=== PATIENT | female | born 1960 | race Caucasian/White ===

== ENCOUNTER 2020-08-31 11:30 | Outpatient (REF) | payer BC, SELFPAY ==
--- NOTE | 2020-08-31 08:30 | PAPFT_PTH ---
PATIENT: Karol Coker LOC: [facility]#:[id number] AGE/SX: 60/F ROOM: RE08/31/[address]: Greg Newton : 1960 BED: DIS: 08/31/2020 SPEC #: [id number] RECD: 08/31/20 12:59 STATUS: BRII REQ #: [id number] MARC: 08/31/20 08:[address]: Greg Newton DEPT: [facility] Cytology RECD BY: Sameera Moncada Tissues: 1 - CX/ENDOCX FOR PAP SMEARS Procedures: PAP THIN PREP/[facility] Screening HPV DNA PROBE Comments: [id number]
[2020-08-31 13:47] LABS: Anion Gap 6.8 mmol/L (3-11); BUN 21 mg/dL (7-18); CO2 28.2 mmol/L (21.0-32.0); CREATININE 0.62 mg/dL (0.55-1.02); Calcium 8.6 mg/dL (8.5-10.1); Calculated LDL 118 mg/dL (<100); Chloride 105 mmol/L (98-107); Cholesterol 210 mg/dL (<200); Glucose 87 mg/dL (74-106); HDL Cholesterol 75 mg/dL (40-60); Potassium 4.1 mmol/L (3.5-5.1); Sodium 140 mmol/L (136-145); Triglyceride 88 mg/dL (<150)
== END 2020-08-31 11:50 ==
LOC: NCHCN 11:30
PROVIDERS: PCP Family Medicine; Visit Provider Family Medicine
DX: Z00.00 Encounter for general adult medical examination without abnormal findings (principal); Z13.220 Encounter for screening for lipoid disorders; Z13.228 Encounter for screening for other metabolic disorders; Z12.4 Encounter for screening for malignant neoplasm of cervix; Z11.51 Encounter for screening for human papillomavirus (HPV)
CPT/HCPCS: 80048; 80061; 88142; 87624

== ENCOUNTER 2022-12-13 11:54 | Outpatient (REF) | payer BC, SELFPAY ==
--- NOTE | 2022-12-13 10:30 | PAPFT_PTH ---
PATIENT: Karol Coker LOC: [facility]#:[id number] AGE/SX: 62/F ROOM: RE12/13/[address]: Raegan Bangura : 1960 BED: DIS: 12/13/2022 SPEC #: [id number] RECD: 12/13/22 17:43 STATUS: BRII REQ #: [id number] MARC: 12/13/22 10:[address]: Raegan Bangura DEPT: [facility] Cytology RECD BY: Sameera Moncada ENTERED: 12/13/22 17:43 SP TYPE: PAPFT OTHR DR: Greg Newton Tissues: 1 - CX/ENDOCX FOR PAP SMEARS Procedures: PAP THIN PREP/[facility] Screening HPV DNA PROBE Comments: [id number]
== END 2022-12-13 11:55 | disposition home or self-care (01) ==
LOC: NCHCN 11:54
PROVIDERS: PCP Family Medicine; Visit Provider Internal Medicine
DX: N89.8 Other specified noninflammatory disorders of vagina (principal); L29.2 Pruritus vulvae; Z12.4 Encounter for screening for malignant neoplasm of cervix; Z11.51 Encounter for screening for human papillomavirus (HPV)
CPT/HCPCS: 88142; 87480; 87510; 87624; 87660

== ENCOUNTER 2023-09-14 10:32 | Outpatient (REF) | payer BC, SELFPAY ==
--- OUTSIDE RECORDS SUMMARY | 2023-09-14 14:24 | XMS_ITS | CCD ---
Author Name Unknown Address [address] [place] [address] [phone] Organization Unknown Address [address] [place] [address] [phone] Care Team Providers Care Accounts Payable Processor Name Role Phone ARTEMIO LANZA Attending Physician [phone] Vital Signs Unknown or Not Available. Allergies Allergy Code Allergy Type Reaction Status No Known Drug Allergies 0 No known drug allergies Active Procedures Unknown or Not Available. History of Immunizations Unknown or Not Available. Problems Unknown or Not Available. Results Unknown or Not Available. Active Medications Unknown or Not Available. Medications Administered During Visit Unknown or Not Available. Encounters Encounter Diagnosis Diagnosis Code Start Date Screening mammography [id number] 09/07/2021 Social History Smoking Status Code Start Date End Date Never smoker [id number] Patient Decision Aids Unknown or Not Available. Discharge Instructions You were admitted to [facility] on 09/07/2021 11:24 with a principal diagnosis of Encounter for screening mammogram for malignant neoplasm of breast You were discharged from [facility] on 09/07/2021 11:24 Should you have any questions prior to discharge, please contact a member of your healthcare team. If you have left the hospital and have any questions, please contact your primary care physician. Chief Complaint and Reason For Visit Chief Complaint Date of Onset SCREENING Function Status Unknown or Not Available. Plan of Care Unknown or Not Available. Referral/Transition of Care Unknown or Not Available.
--- OUTSIDE RECORDS SUMMARY | 2023-09-14 14:24 | XMS_ITS | CCD ---
Author Name Unknown Address [address] [place] [address] [phone] Organization Unknown Address [address] [place] [address] [phone] Care Team Providers Care Compounding Scaler Name Role Phone LYNN HERMOSILLO Attending Physician [phone] LYNN HERMOSILLO Rounding (Secondary) Physic karla [phone] Vital Signs Unknown or Not Available. Allergies [...] Encounters Encounter Diagnosis Diagnosis Code Start Date Cellulitis of right finger [id number] 04/09 Social History Smoking Status Code Start Date End Date Never smoker [id number] Patient Decision Aids Unknown or Not Available. Discharge Instructions You were admitted to [facility] on 04/09/2023 00:00 with a principal diagnosis of Cellulitis of right finger You were discharged from [facility] on 04/09/2023 00:00 Should you have any questions prior to discharge, please contact a member of your healthcare team. If you have left the hospital and have any questions, please contact your primary care physician. Chief Complaint and Reason For Visit Unknown or Not Available. Function Status Unknown or Not Available. Plan of Care Unknown or Not Available. Referral/Transition of Care Unknown or Not Available.
--- OUTSIDE RECORDS SUMMARY | 2023-09-14 14:24 | XMS_ITS | CCD ---
Author Name Unknown Address [address] [place] [address] [phone] Organization Unknown Address [address] [place] [address] [phone] Care Team Providers Care Mink Rancher Name Role Phone ARTEMIO LANZA Attending Physician [phone] Vital Signs Unknown or Not Available. [...] Encounters Encounter Diagnosis Diagnosis Code Start Date Abnormal uterine and vaginal bleeding, unspecifi ed [id number] 03/01/2023 Social History Smoking Status Code Start Date End Date Never smoker [id number] Patient Decision Aids Unknown or Not Available. Discharge Instructions You were admitted to [facility] on 03/01/2023 10:11 with a principal diagnosis of Abnormal uterine and vaginal bleeding, unspecified You were discharged from [facility] on 03/01/2023 10:11 Should you have any questions prior to discharge, please contact a member of your healthcare team. If you have left the hospital and have any questions, please contact your primary care physician. Chief Complaint and Reason For Visit Chief Complaint Date of Onset VAGINAL BLEEDING Function Status Unknown or Not Available. Plan of Care Unknown or Not Available. Referral/Transition of Care Unknown or Not Available.
[2023-09-14 14:32] LABS: Anion Gap 4.5 mmol/L (3-11); BUN 27 mg/dL (7-18); CO2 29.5 mmol/L (21.0-32.0); CREATININE 0.7 mg/dL (0.55-1.02); Calculated LDL 122 mg/dL (<100); Chloride 106 mmol/L (98-107); Cholesterol 214 mg/dL (<200); Estimated GFR 98.34 (mL/min/1.73m2); Glucose 101 mg/dL (74-106); HDL Cholesterol 85 mg/dL (40-60); Potassium 4.4 mmol/L (3.5-5.1); Sodium 140 mmol/L (136-145); Triglyceride 39 mg/dL (<150)
[2023-09-14 14:55] LABS: Vitamin D 25 Total 18.7 ng/mL (30-100)
== END 2023-09-14 10:33 | disposition home or self-care (01) ==
LOC: NCHCN 10:32
PROVIDERS: PCP Family Medicine; Visit Provider Family Medicine
DX: Z00.00 Encounter for general adult medical examination without abnormal findings (principal); E55.9 Vitamin D deficiency, unspecified; R79.89 Other specified abnormal findings of blood chemistry; Z13.6 Encounter for screening for cardiovascular disorders
CPT/HCPCS: 80048; 80061; 82306

== ENCOUNTER 2024-01-16 13:56 | Outpatient (REF) | payer BC, SELFPAY ==
[2024-01-16 21:21] LABS: FREE T4 0.79 ng/dL (0.76-1.46); TSH 1.99 uIU/Ml (0.36-3.74)
[2024-01-19 12:07] LABS: Ro60 Ab, IgG <7.0 CU (<20.0); SS-A/Ro, IgG <2.3 CU (<20.0); SS-B (La) Ab, IgG <3.3 CU (<20.0)
== END 2024-01-16 13:57 | disposition home or self-care (01) ==
LOC: NCHCN 13:56
PROVIDERS: PCP Family Medicine; Visit Provider Family Medicine
DX: H04.123 Dry eye syndrome of bilateral lacrimal glands (principal); L65.8 Other specified nonscarring hair loss
CPT/HCPCS: 84439; 84443; 86235

== ENCOUNTER 2024-09-19 13:12 | Outpatient (REF) | payer BC, SELFPAY ==
[2024-09-19 15:41] LABS: Anion Gap 6.8 mmol/L (3-11); BUN 16 mg/dL (7-18); CO2 30.2 mmol/L (21.0-32.0); CREATININE 0.8 mg/dL (0.55-1.02); Calcium 9.5 mg/dL (8.5-10.1); Calculated LDL 133 mg/dL (<100); Chloride 106 mmol/L (98-107); Cholesterol 241 mg/dL (<200); Estimated GFR 83.26 (mL/min/1.73m2); Glucose 96 mg/dL (74-106); HDL Cholesterol 95 mg/dL (40-60); Potassium 4.6 mmol/L (3.5-5.1); Sodium 143 mmol/L (136-145); Triglyceride 66 mg/dL (<150); Vitamin B12 937 pg/mL (193-986); Vitamin D 25 Total 35.3 ng/mL (30-100)
== END 2024-09-19 13:13 | disposition home or self-care (01) ==
LOC: NCHCN 13:12
PROVIDERS: PCP Family Medicine; Visit Provider Family Medicine
DX: Z00.00 Encounter for general adult medical examination without abnormal findings (principal); E56.9 Vitamin deficiency, unspecified; M79.672 Pain in left foot
CPT/HCPCS: 80048; 80061; 82306; 82607